=== PATIENT | female | born 1970 | race Caucasian/White ===

== ENCOUNTER → 2020-05-31 | Outpatient (CLI) | payer OTHER, BC ==
[~2020-05-31] MED LIST: ADAL40PEN IM; ASPI81CH PO; AZACOL; Apriso0.375 GM; MAGGLU250 PO; MULVITMINE PO; POLY500 PO; SUMA25 PO; VITAMIN D-32000 UNIT PO; Zantac150 MG PO; [UNRECOGNIZED DRUG - OTHER]
[2020-06-01 16:11] LABS: HPV 16 Negative (Negative); HPV 18 Negative (Negative); HPV OTHER HR TYPES Negative (Negative)
== END | disposition home or self-care (01) ==
LOC: LAB 09:45 → LAB SHORT 09:45
PROVIDERS: Obstetrics & Gynecology
DX: Z01.419 Encounter for gynecological examination (general) (routine) without abnormal findings (principal)
CPT/HCPCS: 87624; G0123

== ENCOUNTER 2021-10-12 06:07 | Day surgery (SDC) | payer OTHER, BC ==
[~2021-10-12] VITALS: Ht 160 cm; Wt 58.8 kg
[~2021-10-12 06:07] MED LIST changes: +ATOR40TA PO; +Aspir 8181 MG PO; +CARV3.125 PO; +ENTYVIO300 M1; +LOSA25 PO
--- NOTE | 2021-10-12 07:54 | NUR ---
10/12/21 0754 Letha Haro 0.15 ML OF EPI 1MG/ML ADDED TO 30ML OF BUPIVICAINE 0.5% TO CREATE A SOLUTION OF BUPIVICAINE 0.5% WITH EPI 1:200,000.
--- NOTE | 2021-10-12 10:00 | NUR ---
10/12/21 1000 Melanie Monahan PT REPORTS PAIN 10 AND STATES IT IS TOLERABLE. PT STATES SHE WANTS TO GO HOME AND GO TO BED. REVIEWED DC INSTRUCTIONS WITH PT AND FAMILY. IV DC'D, CATH INTACT. PT GETTING DRESSED AT THIS TIME.
== END 2021-10-12 10:02 | disposition home or self-care (01) ==
LOC: ORSCSDS 06:07
PROVIDERS: Podiatrist Foot & Ankle Surgery
PROC: 0SGH04Z Fusion of Right Tarsal Joint with Internal Fixation Device, Open Approach (ICD-10-PCS; principal; 2021-10-12 07:30)
DX: M20.11 Hallux valgus (acquired), right foot (principal); I10 Essential (primary) hypertension; D68.51 Activated protein C resistance; Z79.899 Other long term (current) drug therapy; Z79.82 Long term (current) use of aspirin
CPT/HCPCS: A9270; C1776; J0171; J0690; J1100; J2250; J2405; J2704; J3010; J7120

== ENCOUNTER 2022-05-06 07:46 | Day surgery (SDC) | payer OTHER, BC ==
[~2022-05-06 07:46] MED LIST changes: +AZIT250 PO; +Cefpodoxime Pr100 MG PO; -ENTYVIO300 M1; +ENTYVIO300 M1 IV
--- NOTE | 2022-05-06 09:05 | NUR ---
PT PREPPED PER PROTOCOL FOR CTA, 20G L AC BY SEJAL Foster RN, PT HENOK CTA WELL, DRESSED, IV DC'D INTACT, AMB WELL ON DC, STABLE.
== END 2022-05-06 23:11 | disposition home or self-care (01) ==
LOC: CT 07:46
DX: R07.89 Other chest pain (principal); I73.9 Peripheral vascular disease, unspecified; I10 Essential (primary) hypertension
CPT/HCPCS: 75574; Q9967

== ENCOUNTER → 2024-08-11 | Outpatient (CLI) | payer OTHER, BC ==
[2024-08-11 14:41] LABS: Bacterial Vaginosis PCR Negative (NEGATIVE); Candida Group, PCR NOT DETECTED (NOT DETECT); Candida glabrata-krusei, PCR NOT DETECTED (NOT DETECT)
== END ==
LOC: LAB SHORT 11:26 → LAB 11:26
PROVIDERS: Obstetrics & Gynecology
DX: N89.8 Other specified noninflammatory disorders of vagina (principal)
CPT/HCPCS: 81515

== ENCOUNTER → 2025-03-24 | Outpatient (CLI) | payer OTHER, BC | LOC: LAB SHORT 16:18 → LAB 16:18 | PROVIDERS: Obstetrics & Gynecology | DX: Z01.419 Encounter for gynecological examination (general) (routine) without abnormal findings (principal) | CPT/HCPCS: 87624; G0145 ==